=== PATIENT | male | born 1975 | race Caucasian/White ===

== ENCOUNTER 2017-10-01 17:51 | Emergency (ER) | payer BC ==
[2017-10-01 18:01] VITALS: BP 130/100
--- NOTE | 2017-10-01 18:36 | UC ---
Hand/Wrist HPI - HPI Summary HPI Summary: 42 yo male presents with RIGHT hand injury that occurred this morning. He tells me that he was going down the steps at work and stumbled on the steps - caught himself with his right hand on the railing, but his wrist twisted. Has been painful since. Has not taken anything for pain. Denies numbness or tingling. - History Of Current Complaint Chief Complaint: UCUpperExtremity Stated Complaint: HAND INJURY Time Seen by Provider: 10/01/17 18:13 Hx Obtained From: Patient Onset/Duration: Sudden Onset Severity Initially: Moderate Severity Currently: Moderate Pain Intensity: 6 Pain Scale Used: 0-10 Numeric - Allergies/Home Medications Allergies/Adverse Reactions: Allergies Allergy/AdvReac Type Severity Reaction Status Date / Time No Known Allergies Allergy Verified 10/01/17 18:02 Home Medications: Home Medications NK [No Home Medications Reported] 10/01/17 [History Confirmed 10/01/17] PMH/Surg Hx/FS Hx/Imm Hx - Additional Past Medical History Additional PMH: None Previously Healthy: Yes Other History Of: Negative For: Anticoagulant Therapy - Surgical History Surgical History: Yes Surgery Procedure, Year, and Place: cholecystectomy; wisdom teeth - Family History Known Family History: Positive: None - Social History Occupation: Employed Full-time Lives: With Family Alcohol Use: Rare Substance Use Type: None Smoking Status (MU): Never Smoked Tobacco - Immunization History Most Recent Influenza Vaccination: no Review of Systems Constitutional: Negative Skin: Negative Respiratory: Negative Cardiovascular: Negative Neurovascular: Negative Musculoskeletal: Other: - Right wrist pain Neurological: Negative Psychological: Negative All Other Systems Reviewed And Are Negative: Yes Physical Exam - Summary Physical Exam Summary: GENERAL: NAD. WDWN. No pain distress. SKIN: No rashes, sores, lesions, or open wounds. NECK: Supple. Nontender. No lymphadenopathy. CHEST: No accessory muscle use. Breathing comfortably and in no distress. CV: Pulses intact radial and ulnar. MSK: RIGHT WRIST: TTP over ulnar styloid of wrist. FROM. Strength 5/5 including customer development manager strength. No edema or obvious bony deformities. No snuffbox tenderness. NEURO: Alert. Sensations intact hand and all fingers. PSYCH: Age appropriate behavior. Triage Information Reviewed: Yes Vital Signs: Initial Vital Signs Temp 98.3 F 07/09/18 17:57 Pulse 72 10/01/17 17:57 Resp 12 10/01/17 17:57 BP 130/100 10/01/17 17:57 Pulse Ox 98 10/01/17 17:57 Hand/Wrist Course/Dx - Course Course Of Treatment: XR: IMPRESSION: Dorsal avulsion fracture likely triquetral in origin. I discussed with the pt putting him in an orthoglass splint, he said he did not want to be in a splint and would prefer something he could take on and off. Will place him in a cock-up splint and advise no lifting, pushing, or pulling with his right hand/wrist until he follows up with Orthopedics. - Differential Dx/Diagnosis Provider Diagnoses: Dorsal avulsion fracture triquetral right wrist Discharge - Sign-Out/Discharge Documenting (check all that apply): Discharge/Admit/Transfer - Discharge Plan Condition: Stable Disposition: HOME Patient Education Materials: Wrist Fracture in Adults (ED) Referrals: Harsh Adams MD [Primary Care Provider] - Yovani Partida MD [Medical Doctor] - As Soon As Possible Additional Instructions: If you develop a fever, shortness of breath, chest pain, new or worsening symptoms - please call your PCP or go to the ED. Your blood pressure was high at todays visit. Please see your primary provider within 4 weeks for recheck and re-evaluation. 1) Please schedule a follow up appointment with Orthopedics as soon as possible - Billing Disposition and Condition Condition: STABLE Disposition: Home
--- NOTE | 2017-10-01 18:47 | RAD ---
INDICATION: Fifth metacarpal pain COMPARISON: None TECHNIQUE: AP, lateral, and oblique views were obtained. FINDINGS: There is soft tissue swelling over the dorsum the wrist with a small avulsion fracture which is likely triquetral in origin. The bony structures and joint space are otherwise normal. IMPRESSION: Dorsal avulsion fracture likely triquetral in origin
== END 2017-10-01 19:25 | disposition home or self-care (01) ==
LOC: UCEAST 17:51
DX: S62.111A Displaced fracture of triquetrum [cuneiform] bone, right wrist, initial encounter for closed fracture (principal); X50.1XXA Overexertion from prolonged static or awkward postures, initial encounter; Y92.9 Unspecified place or not applicable
CPT/HCPCS: 99203; G0463

== ENCOUNTER 2019-01-27 07:01 | Emergency (ER) | payer BC, OTHER ==
--- NOTE | 2019-01-27 07:12 | UC ---
Bite Injury/Animal HPI - HPI Summary HPI Summary: Patient presents to urgent care for evaluation of a tick bite. Patient states he noticed on his right buttock this morning. Patient states his removed it intact and alive. Patient states he does not know home on this but he thinks less than 24 hours. Patient denies fevers or chills. Patient did have Lyme disease 2016. Patient states that approximately. Patient will take with him. Patient is not immunocompromised. Medications reviewed his visit. - History of Current Complaint Stated Complaint: TICK BITE Hx Obtained From: Patient Severity Currently: None Pain Scale Used: 0-10 Numeric - Allergies/Home Medications Allergies/Adverse Reactions: Allergies Allergy/AdvReac Type Severity Reaction Status Date / Time No Known Allergies Allergy Verified 01/27/19 07:12 PMH/Surg Hx/FS Hx/Imm Hx Previously Healthy: Yes - remote history of lyme disease Other History Of: Negative For: Anticoagulant Therapy - Surgical History Surgical History: Yes Surgery Procedure, Year, and Place: cholecystectomy; wisdom teeth - Family History Known Family History: Positive: Non-Contributory - Social History Occupation: Employed Full-time Lives: With Family Alcohol Use: Rare Substance Use Type: None Smoking Status (MU): Current Some Day Smoker Type: Cigars - occasional - Immunization History Most Recent Influenza Vaccination: no Review of Systems All Other Systems Reviewed And Are Negative: Yes Constitutional: Positive: Negative Skin: Positive: Other - tick Is Patient Immunocompromised?: No Physical Exam - Summary Physical Exam Summary: Vital Signs Reviewed: Yes A+Ox3, no distress Eyes: Conjunctiva Clear ENT: Hearing grossly normal Neck: supple Respiratory: Positive: No respiratory distress, No accessory muscle use Cardiovascular: skin color reflect adequate perfusion Musculoskeletal Exam: HARRIS x 4 without difficulty Neurological: Positive: Alert, ambulatory without difficulty Psychological: Positive: Normal Response To examiner Skin: Positive: right lateral gluteal area dime sized area of erythema with central ecchymosis and punctate wound - evaluated under magnification no retrained part appreciated. Pt has tick with him, not engorged, alive, appears intact Triage Information Reviewed: Yes Bite Injury Course/Dx - Course Course Of Treatment: Pt presents following removal of a tick on right glueal area. Pt states unknown how long attached - suspect Sat or yesterday. removed tick intact and alive VSS pt with small wound right gluteal area no retained part noted under magnification Reviewed CDC guidelines with pt - requested doxy prophylaxis tdap utd reviewe with pt wound care pt given tick remover with instructions BP mildly elevated - recommend fu with pcp - pt was anxious initially - likely related to presenting complaint - Differential Dx/Diagnosis Provider Diagnosis: Tick bite of buttock Discharge ED - Sign-Out/Discharge Documenting (check all that apply): Patient Departure All imaging exams completed and their final reports reviewed: No Studies - Discharge Plan Condition: Stable Disposition: HOME Patient Education Materials: Tick Bite (ED) Referrals: Harsh Adams MD [Primary Care Provider] - Additional Instructions: Keep area clean and dry Check yourself daily for ticks after you have been working in the [employer] You may develop reddness at the site where the tick was attached - this is normal and may last several days after a tick is removed. The area may itch - this is common as well. Contact your doctor or return with questions or concerns Approach to prophylaxis : According to the Infectious Diseases Society of [place] (IDSA) guidelines that recommend antibiotic prophylaxis only in patients who meet all of the following criteria: 1. Attached tick identified as an adult or nymphal I. scapularis tick (deer tick). 2. Tick is estimated to have been attached for 36 hours (by degree of engorgement or time of exposure). 3. Prophylaxis is begun within 72 hours of tick removal. Local rate of infection of ticks with B. burgdorferi is 20 percent if attached for over 48 hours (these rates of infection have been shown to occur in parts of [place], parts of the [facility], and parts of [place] and [place]). If you experience a tick and time of attachment is believed to be less than 36 hours, you may remove the tick with head intact and no need for prophylaxis. If over 36 hours, please come into UC. Prophylactic doxycycline is not recommended for ticks attached less than 36 hours. You have been given the one time treatment of prophylaxis Doxycycline today. - Billing Disposition and Condition Condition: STABLE Disposition: Home
[2019-01-27 07:13] VITALS: BP 146/99
[2019-01-27] MEDS ORDERED: DOXYcycline CAP(*) 100 MG PO ONE (07:22)
== END 2019-01-27 07:29 | disposition home or self-care (01) ==
LOC: UCEAST 07:01
DX: S30.860A Insect bite (nonvenomous) of lower back and pelvis, initial encounter (principal); F17.290 Nicotine dependence, other tobacco product, uncomplicated; R03.0 Elevated blood-pressure reading, without diagnosis of hypertension; W57.XXXA Bitten or stung by nonvenomous insect and other nonvenomous arthropods, initial encounter; Y92.009 Unspecified place in unspecified non-institutional (private) residence as the place of occurrence of the external cause
CPT/HCPCS: 99212; A9270-GY; G0463